=== PATIENT | female | born 1960 | race Caucasian/White ===

== ENCOUNTER 2018-04-12 18:34 | Emergency (ER) | payer BC, SELFPAY ==
[~2018-04-12] VITALS: Ht 154.9 cm; Wt 57.3 kg
[2018-04-12] MEDS ORDERED: LIDOCAINE 2% MDV 20 ML VIAL SC ONE (20:15)
[2018-04-12] MEDS ORDERED: ADACEL/BOOSTRIX VACCINE (DIPHTH/PERTUSS/ACELL/TETANUS)0.5ML SYR (90715) IM ONE (20:15)
[2018-04-12 20:32] VITALS: BP 136/83
== END 2018-04-12 20:37 | disposition home or self-care (01) ==
LOC: M ED 18:34
DX: S61.211A Laceration without foreign body of left index finger without damage to nail, initial encounter (principal); W26.8XXA Contact with other sharp object(s), not elsewhere classified, initial encounter; Y92.018 Other place in single-family (private) house as the place of occurrence of the external cause; F17.210 Nicotine dependence, cigarettes, uncomplicated

== ENCOUNTER → 2018-07-25 | Outpatient (REF) | payer BC | LOC: M SFHCLERA 19:13 | PROVIDERS: ATTEND Physician Assistant | DX: R50.9 Fever, unspecified (principal) ==